=== PATIENT | male | born 1990 | race Asian ===

== ENCOUNTER 2020-12-11 22:46 | Emergency (ER) | payer OTHER ==
[2020-12-11 23:00] VITALS: BP 173/98
--- NOTE | 2020-12-11 23:27 | ED Physician Documentation ---
PD HPI BACK PAIN - Stated complaint Stated Complaint: LOWER BACK PX/INJURY - Chief complaint Chief Complaint: Trauma Ch/Bk - History obtained from History obtained from: Patient - History of Present Illness Timing - onset: Enter time (21:45) Timing - details: Abrupt onset Pain level max: 8 Pain level now: 4 Location: Lower, Left Quality: Pain, Spasm Associated symptoms: Weakness (BLE weakness but only when pain is severe). No: Fever, Numbness, Incontinent of urine, Unable to urinate, Hematuria, Incontinent of stool Improves with: Nothing Worsened by: Movement (there is a component of exacerbation with movement, but not distinctly related) Similar symptoms before: Has not had sx before Recently seen: Not recently seen - Additional information Additional information: tonight at approximately 9:45 PM while at work, patient lifted a heavy object (aircraft part) onto a table; he did not have any pain when he did so, but he subsequently was working on the object and within 20 minutes of lifting the object onto the tabe, he had rapid onset of left low back pain that has been waxing and waning since onset. denies h/o similar pain. there is a component of worsening of the pain with movement, although not reliably worse with movement and, at times, the pain worsens even when at rest lying still. He says he feels BLE weakness when the pain is most intense but no weakness between the more severe pain. Generally the pain has improved since he arrived to ED (while awaiting triage process and this evaluation) Review of Systems Constitutional: denies: Fever, Chills, Sweats GI: denies: Abdominal Pain, Nausea, Vomiting : denies: Dysuria, Frequency, Unable to Void, Incontinent, Hematuria Musculoskeletal: reports: Back pain Neurologic: reports: Generalized weakness (BLE weakness when pain is most intense). denies: Focal weakness, Numbness PD PAST MEDICAL HISTORY - Past Medical History Past Medical History: No - Past Surgical History Past Surgical History: No - Present Medications Home Medications: Ambulatory Orders Medication Instructions Recorded Confirmed Cyclobenzaprine [Flexeril] 10 mg PO TID PRN #14 tablet 12/12/20 HYDROcod/ACETAM 5/325 [Roann 5/325] 1 - 2 ea PO Q6H PRN #10 tablet 12/12/20 - Allergies Allergies/Adverse Reactions: Allergies Allergy/AdvReac Type Severity Reaction Status Date / Time No Known Drug Allergies Allergy Verified 12/11/20 23:00 - Social History Does the pt smoke?: No Smoking Status: Never smoker Does the pt drink ETOH?: No Does the pt have substance abuse?: No - Immunizations Immunizations are current?: Yes PD ED PE NORMAL - Vitals Vital signs reviewed: Yes - General General: Alert and oriented X 3, No acute distress, Well developed/nourished - Cardiac Cardiac: RRR, No murmur - Respiratory Respiratory: No respiratory distress, Clear bilaterally - Abdomen Abdomen: Soft, Non tender - Back Back: No CVA TTP, No spinal TTP - Derm Derm: Normal color, Warm and dry - Neuro Neuro: No motor deficit, No sensory deficit Results - Vitals Vitals: Vital Signs - 24 hr 12/11/20 22:50 Temperature 36.4 C L Heart Rate 95 Respiratory 16 Rate Blood Pressure 173/98 H O2 Saturation 97 Oxygen O2 Source Room air - Labs Labs: Laboratory Tests 12/12/20 00:00 Urine Color YELLOW Urine Clarity CLEAR Urine pH 6.0 Ur Specific Perrin >=1.030 H Urine Protein NEGATIVE Urine Glucose (UA) NEGATIVE Urine Ketones NEGATIVE Urine Occult Blood TRACE-LYSE Urine Nitrite NEGATIVE Urine Bilirubin NEGATIVE Urine Urobilinogen 0.2 (NORMAL) Ur Leukocyte Esterase NEGATIVE Ur Microscopic Review NOT INDICATED Urine Culture Comments NOT INDICATED - Rads (name of study) CT A/P Radiology: Prelim report reviewed, See rad report PD MEDICAL DECISION MAKING - ED course Complexity details: reviewed results, re-evaluated patient, considered differential, d/w patient ED course: HPI s/o musculoskeletal back pain, although the onset was 20 minutes after heavy lifting and there is only a partial component of exacerbation with movement. Renal colic also considered and thus UA performed; this also was equivocal in that there was trace hematuria. CT A/P then performed and this has no findings to suggest renal colic (current or recently passed stone). Incidentally noted is fatty liver. Results d/w patient. He declines pain medication while in ED but agrees with rx for pain medication (vicodin) and muscle relaxer (flexeril), as the pain he experienced prior to arrival was intense and may not respond to nsaids. I recommended he try NSAIDs first if the pain recurs (such as ibuprofen or naproxen), but can start with the prescribed medications if the pain is severe or else use the prescribed medications if NSAIDs ineffective. Patient ambulated out of ED after d/c in NAD and without difficulty or assistance. Departure - Departure Disposition: 01 Home, Self Care Clinical Impression: Back pain Condition: Good Instructions: ED Neck Back Pain General Follow-Up: JAQUELINE Nguyen [Provider Group] Prescriptions: Cyclobenzaprine [Flexeril] 10 mg PO TID PRN #14 tablet PRN Reason: Spasms HYDROcod/ACETAM 5/325 [Roann 5/325] 1 - 2 ea PO Q6H PRN #10 tablet PRN Reason: Pain Comments: Follow up with your primary care provider for reevaluation of your back pain. Also, as we discussed, your CT scan revealed you have fatty liver; this is not a concerning finding but you should inform your primary care provider about this finding Forms: Activity restrictions Discharge Date/Time: 12/12/20 01:37
[2020-12-12 00:06] LABS: BILIRUBIN,URINE NEGATIVE (NEGATIVE); GLUCOSE, URINE (UA) NEGATIVE (NEGATIVE); KETONES,URINE (UA) NEGATIVE (NEGATIVE); LEUKOCYTE ESTERASE, URINE NEGATIVE (NEGATIVE); NITRITE,URINE NEGATIVE (NEGATIVE); OCCULT BLOOD,URINE TRACE-LYSE (NEGATIVE); PROTEIN,URINE NEGATIVE (NEGATIVE); UROBILINOGEN,URINE 0.2 (NORMAL) E.U./dL (NORMAL)
[2020-12-12 00:07] LABS: CLARITY,URINE CLEAR (CLEAR)
[2020-12-12] MEDS ORDERED: CYCLOBENZAPRINE 10 MG Prepack 2 PO PRN (01:27)
[2020-12-12] MEDS ORDERED: HYDROcod/ACET 5/325 Prepack 4 PO STA (01:27)
--- NOTE | 2020-12-12 08:51 | CT Report ---
PROCEDURE: Abdomen/Pelvis WO INDICATIONS: Left flank pain, hematuria TECHNIQUE: Noncontrast 5 mm thick sections acquired from the diaphragms to the symphysis. 5 mm coronal and sagi ttal reformats were then performed. For radiation dose reduction, the following was used: automated exposure control, adjustment of mA and/or kV according to patient size. COMPARISON: None. FINDINGS: Image quality: Excellent. ABDOMEN: Lung bases: Lung bases are clear. Heart size is normal. Solid organs: Severe hepatic steatosis with mild hepatomegaly. Liver otherwise unremarkable. Normal s ize of the spleen. Gallbladder is contracted and normal in appearance. Pancreas is normal in contour s. No adrenal nodules. Kidneys are normal in size, without hydronephrosis or nephrolithiasis. Peritoneum and bowel: Unenhanced bowel loops demonstrate normal wall thickness and caliber. No free fluid or air. Nodes and vessels: No retroperitoneal or mesenteric adenopathy by size criteria. Aorta and inferior vena cava are normal in caliber. Miscellaneous: No ventral hernias. PELVIS: Genitourinary: Bladder wall thickness is normal. Miscellaneous: No inguinal hernias or adenopathy. Bones: No suspicious bony lesions. No vertebral body compression fractures. IMPRESSION: No finding to explain flank pain or hematuria. Severe hepatic steatosis with mild hepatomegaly. Reviewed by: Slick Weaver MD on 12/12/2020 8:49 AM PST Approved by: Slick Weaver MD on 12/12/2020 8:49 AM PST Station ID: [id number]
== END 2020-12-12 01:37 | disposition home or self-care (01) ==
LOC: EDBD → ED 22:46
DX: M54.5 Low back pain (principal); X50.0XXA Overexertion from strenuous movement or load, initial encounter; Y99.0 Civilian activity done for income or pay; R31.9 Hematuria, unspecified
CPT/HCPCS: 81001; 81003; 87086; 99284